=== PATIENT | male | born 1960 | race Caucasian/White ===

== ENCOUNTER 2017-04-24 18:01 | Emergency (ER) | payer MEDICARE ==
[~2017-04-24] VITALS: Ht 160 cm; Wt 65.8 kg
[~2017-04-24 18:01] MED LIST: CLARITIN10 MG PO; COMBIVENT1 ARO IH; KEFLEX500 MG PO; MEDROL DOSEPAK4 MG PO; NKHM; PREDNICOT20 MG PO; TRAMADOL HCL50 MG PO; TRIMOX500 MG PO; ZITHROMAX Z PA250 MG PO
[2017-04-24 18:40] LABS: BASO # 0.1 10*3/uL (0.0-0.1); BASO % 0.9 % (0.0-1.0); EOS # 0.5 10*3/uL (0.0-0.4); EOS % 8.3 % (1.0-4.0); HEMATOCRIT 39.5 % (42.0-52.0); HEMOGLOBIN 13.1 g/dl (14.0-18.0); LYMPH # 2.6 10*3/uL (1.3-4.4); LYMPH % 40.5 % (27.0-41.0); MEAN CELL VOLUME 91.4 fl (80.0-94.0); MEAN CORPUSCULAR HGB 30.3 pg (27.0-31.0); MEAN CORPUSCULAR HGB CONC 33.2 g/dl (33.0-37.0); MEAN PLATELET VOLUME 9.5 fl (9.6-12.3); MONO # 0.4 10*3/uL (0.1-1.0); MONO % 6.8 % (3.0-9.0); NEUT # 2.8 10*3/uL (2.3-7.9); NEUT % 43.5 % (47.0-73.0); PLATELET COUNT AUTOMATED 283 10*3/uL (130-400); RED BLOOD COUNT 4.32 10*6/uL (4.50-5.90); RED CELL DISTRI WIDTH 13.4 % (0-14.5); WHITE BLOOD COUNT 6.5 10*3/uL (4.8-10.8)
[2017-04-24 18:55] LABS: ALBUMIN 3.5 gm/dl (3.1-4.5); ALKALINE PHOSPHATASE 72 U/L (45-117); BUN 14 mg/dl (7-24); CHLORIDE 106 mmol/L (98-107); CREATININE 0.83 mg/dL (0.70-1.30); POTASSIUM 3.9 mmol/L (3.5-5.1); SGOT/AST 14 IU/L (3-35); SGPT/ALT 17 U/L (12-78); SODIUM 141 mmol/L (136-145); TOTAL PROTEIN 6.5 gm/dL (6.4-8.2)
[2017-04-24] MEDS ORDERED: NORCO 5-325 TA1 EACH PO (20:44)
[2017-04-24] MEDS ORDERED: CEPHALEXIN500 M1 PO (20:44)
[2017-04-24] MEDS ORDERED: SEPTDS PO (20:44)
== END 2017-04-24 20:49 | disposition home or self-care (01) ==
LOC: ED 18:01
PROVIDERS: Physician Assistant
DX: L02.31 Cutaneous abscess of buttock (principal); F17.200 Nicotine dependence, unspecified, uncomplicated

== ENCOUNTER → 2018-04-16 | Outpatient (CLI) | payer MEDICARE ==
[~2018-04-16] MED LIST changes: +ANUSOL-HC25 MG R; +CEPHALEXIN500 M1 PO; +COLACE100 MG PO; +NORCO 5-325 TA1 EACH PO; +SEPTDS PO
[2018-04-16 08:53] LABS: BASO # 0.1 10*3/uL (0.0-0.1); BASO % 0.8 % (0.0-1.0); EOS # 0.8 10*3/uL (0.0-0.4); EOS % 9.5 % (1.0-4.0); HEMATOCRIT 45.6 % (42.0-52.0); LYMPH # 2.2 10*3/uL (1.3-4.4); LYMPH % 27.3 % (27.0-41.0); MEAN CELL VOLUME 91.4 fl (80.0-94.0); MEAN CORPUSCULAR HGB 30.1 pg (27.0-31.0); MEAN CORPUSCULAR HGB CONC 32.9 g/dl (33.0-37.0); MEAN PLATELET VOLUME 9.5 fl (9.6-12.3); MONO # 0.5 10*3/uL (0.1-1.0); MONO % 5.8 % (3.0-9.0); NEUT # 4.5 10*3/uL (2.3-7.9); NEUT % 56.3 % (47.0-73.0); PLATELET COUNT AUTOMATED 246 10*3/uL (130-400); RED BLOOD COUNT 4.99 10*6/uL (4.50-5.90); RED CELL DISTRI WIDTH 13.2 % (0-14.5); WHITE BLOOD COUNT 7.9 10*3/uL (4.8-10.8)
[2018-04-16 09:07] LABS: ALBUMIN 3.5 gm/dl (3.1-4.5); ALKALINE PHOSPHATASE 74 U/L (45-117); BUN 15 mg/dl (7-24); CHLORIDE 108 mmol/L (98-107); CREATININE 0.87 mg/dL (0.70-1.30); POTASSIUM 3.8 mmol/L (3.5-5.1); SGOT/AST 14 IU/L (3-35); SGPT/ALT 17 U/L (12-78); SODIUM 141 mmol/L (136-145); TOTAL PROTEIN 6.6 gm/dL (6.4-8.2)
== END | disposition home or self-care (01) ==
LOC: LAB 08:14
PROVIDERS: Urology
DX: D40.0 Neoplasm of uncertain behavior of prostate (principal); I10 Essential (primary) hypertension

== ENCOUNTER → 2018-05-23 | Day surgery (SDC) | payer MEDICARE ==
--- NOTE | ~2018-05-23 | PROC NOTE ---
[place], [place] PROCEDURE NOTE NAME: SANTY VAZQUEZ [facility] #: [id number] UNIT #: [id number] ROOM: DOCTOR: EMANUEL HENRY,DOMITILA BIRTHDATE: [birth year] DOS: PROCEDURE: Colonoscopy. INDICATIONS: Hematochezia. An informed consent was obtained from the patient after the indication of procedure, the alternatives and potential complications were explained to him. PROCEDURE MEDICATION: Sedation was administered by Anesthesiology Department. SCOPE USED: Olympus pediatric colonoscope variable stiffness GIF-180. DEPTH OF INSERTION: To the cecum, which was identified by the usual landmarks, the appendiceal orifice, the ileocecal valve and triangular fold, in addition to transillumination in the right lower quadrant. FINDINGS: After adequate sedation, the patient was placed in left lateral decubitus position. Rectal examination showed normal sphincter tone and no external hemorrhoids. The scope was introduced into the rectum, then advanced to the cecum with some difficulty due to looping in the left colon and fixed sigmoid loops. The prep was suboptimal. The visualized mucosa appeared normal with no evidence of polyps, diverticular ulcerations. Retroflexed views in the rectum showed grade 2 internal hemorrhoids. The scope was then withdrawn after the rectum was decompressed. The patient tolerated the procedure well. IMPRESSION: 1. Suboptimal prep. 2. Internal hemorrhoids. 3. Normal colon mucosa, otherwise no polyps seen. PLAN: A repeat screening colonoscopy advised in 5 years. The patient was instructed to follow a high-fiber diet and use fiber supplements daily. Office followup will be scheduled p.r.n. DOMITILA CASTELLANOS MD CM:PROCNOTE:PROCEDURE NOTE [id number] KJ CASTELLANOS MD
[2018-05-23 07:20] VITALS: BP 107/63
[2018-05-23 08:30] VITALS: BP 100/63
[2018-05-23 08:45] VITALS: BP 105/68
[2018-05-23 09:00] VITALS: BP 109/72
== END | disposition home or self-care (01) ==
LOC: CANPRESDC → SDC 04-21 08:45
DX: K64.8 Other hemorrhoids (principal); Z87.442 Personal history of urinary calculi; Z98.890 Other specified postprocedural states

== ENCOUNTER 2019-12-30 17:28 | Emergency (ER) | payer OTHER ==
[2019-12-30] MEDS ORDERED: PROVENTIL HFA6.7 GM INH (20:36)
== END 2019-12-30 20:37 | disposition home or self-care (01) ==
LOC: ED 17:28
DX: R05 Cough (principal); J02.9 Acute pharyngitis, unspecified; Z20.828 Contact with and (suspected) exposure to other viral communicable diseases

== ENCOUNTER → 2020-06-28 | Outpatient (CLI) | payer OTHER ==
[~2020-06-28] MED LIST changes: +PROVENTIL HFA6.7 GM INH
[2020-06-28 10:08] LABS: BASO % 0.6 % (0.0-1.0); EOS # 0.3 10*3/uL (0.0-0.4); EOS % 6.9 % (1.0-4.0); HEMATOCRIT 45.9 % (42.0-52.0); LYMPH % 40.2 % (27.0-41.0); MEAN CELL VOLUME 90.4 fl (80.0-94.0); MEAN CORPUSCULAR HGB 29.3 pg (27.0-31.0); MEAN CORPUSCULAR HGB CONC 32.5 g/dl (33.0-37.0); MEAN PLATELET VOLUME 9.4 fl (9.6-12.3); MONO # 0.3 10*3/uL (0.1-1.0); MONO % 6.3 % (3.0-9.0); NEUT # 2.2 10*3/uL (2.3-7.9); NEUT % 45.8 % (47.0-73.0); PLATELET COUNT AUTOMATED 248 10*3/uL (130-400); RED BLOOD COUNT 5.08 10*6/uL (4.50-5.90); RED CELL DISTRI WIDTH 13.4 % (0-14.5); WHITE BLOOD COUNT 4.9 10*3/uL (4.8-10.8)
[2020-06-28 10:41] LABS: ALBUMIN 3.7 gm/dl (3.1-4.5); BUN 10 mg/dl (7-24); CHLORIDE 111 mmol/L (98-107); CHOLESTEROL 176 mg/dL (<200); POTASSIUM 4.1 mmol/L (3.5-5.1); SGOT/AST 9 IU/L (3-35); SGPT/ALT 15 U/L (12-78); SODIUM 142 mmol/L (136-145); TOTAL PROTEIN 6.6 gm/dL (6.4-8.2); TRIGLYCERIDES 94 mg/dl (<150); VLDL CHOLESTEROL 19 mg/dL (6-40)
[2020-06-28 10:47] LABS: ALKALINE PHOSPHATASE 91 U/L (45-117); FREE T4 1.04 ng/dl (0.76-1.46); HDL CHOLESTEROL 54 mg/dl (40-60); LDL CHOLESTEROL 103 mg/dL (9-159)
[2020-06-28 11:00] LABS: VITAMIN D, 25-HYDROXY 9.6 ng/mL (30-100)
== END | disposition home or self-care (01) ==
LOC: LAB 09:00
PROVIDERS: ATTEND Internal Medicine
DX: M51.37 Other intervertebral disc degeneration, lumbosacral region (principal); M51.36 Other intervertebral disc degeneration, lumbar region; M17.12 Unilateral primary osteoarthritis, left knee; M25.762 Osteophyte, left knee; M43.06 Spondylolysis, lumbar region; M25.78 Osteophyte, vertebrae; M25.862 Other specified joint disorders, left knee; R06.02 Shortness of breath; G95.89 Other specified diseases of spinal cord; I70.0 Atherosclerosis of aorta; I10 Essential (primary) hypertension; E55.9 Vitamin D deficiency, unspecified; Z00.00 Encounter for general adult medical examination without abnormal findings; Z13.1 Encounter for screening for diabetes mellitus; Z13.21 Encounter for screening for nutritional disorder; Z13.220 Encounter for screening for lipoid disorders

== ENCOUNTER 2021-07-10 14:25 | Emergency (ER) | payer MEDICARE, OTHER ==
[~2021-07-10] VITALS: Wt 56.7 kg
[2021-07-10] MEDS ORDERED: AMOXICILLIN500 M2 PO (14:48)
[2021-07-10] MEDS ORDERED: CETIRIZINE10 MG PO (14:48)
[2021-07-10] MEDS ORDERED: FLONASE ALLERG9.9 ML NAS (14:48)
== END 2021-07-10 15:02 | disposition home or self-care (01) ==
LOC: ED 14:25
DX: J32.9 Chronic sinusitis, unspecified (principal)

== ENCOUNTER 2022-04-21 17:34 | Emergency (ER) | payer OTHER ==
[~2022-04-21 17:34] MED LIST changes: +AMOXICILLIN500 M2 PO; +CETIRIZINE10 MG PO; +FLONASE ALLERG9.9 ML NAS
[2022-04-21 19:04] LABS: BASO % 0.4 % (0.0-1.0); EOS # 0.4 10*3/uL (0.0-0.4); EOS % 6.5 % (1.0-4.0); HEMATOCRIT 44.1 % (42.0-52.0); LYMPH # 2.1 10*3/uL (1.3-4.4); LYMPH % 37.8 % (27.0-41.0); MEAN CELL VOLUME 90.2 fl (80.0-94.0); MEAN CORPUSCULAR HGB 30.1 pg (27.0-31.0); MEAN CORPUSCULAR HGB CONC 33.3 g/dl (33.0-37.0); MEAN PLATELET VOLUME 9.7 fl (9.6-12.3); MONO # 0.4 10*3/uL (0.1-1.0); MONO % 6.6 % (3.0-9.0); NEUT # 2.6 10*3/uL (2.3-7.9); NEUT % 48.7 % (47.0-73.0); PLATELET COUNT AUTOMATED 206 10*3/uL (130-400); RED BLOOD COUNT 4.89 10*6/uL (4.50-5.90); RED CELL DISTRI WIDTH 12.8 % (0-14.5); WHITE BLOOD COUNT 5.4 10*3/uL (4.8-10.8)
[2022-04-21 19:29] LABS: ALKALINE PHOSPHATASE 76 U/L (46-116); BUN 8 mg/dl (9-23); CHLORIDE 104 mmol/L (98-107); LIPASE 25 U/L (12-53); POTASSIUM 3.9 mmol/L (3.4-5.1); SGPT/ALT 8 U/L (10-49); TOTAL PROTEIN 6.4 gm/dL (6.0-8.0)
[2022-04-21 21:33] LABS: BILIRUBIN Negative (Negative); BLOOD Negative (Negative); CLARITY Clear (Clear); COLOR Yellow (Yellow); GLUCOSE Negative (Negative); KETONE 1+ (Negative); LEUKO ESTERASE Negative (Negative); NITRITE Negative (Negative); PH 6.5 (4.5-8.0); SPECIFIC GRAVITY >= 1.030 (1.001-1.030)
[2022-04-21 21:48] LABS: HYALINE CAST 0-2; MUCOUS 1+; WBC 0-2 wbc/hpf (0-5)
[2022-04-21 21:50] LABS: EPITHELIAL CELLS 0-2
== END 2022-04-21 21:52 | disposition home or self-care (01) ==
LOC: ED 17:34
PROVIDERS: Physician Assistant
DX: S23.3XXA Sprain of ligaments of thoracic spine, initial encounter (principal); Z98.890 Other specified postprocedural states; Z87.891 Personal history of nicotine dependence; X50.1XXA Overexertion from prolonged static or awkward postures, initial encounter; Y93.89 Activity, other specified; Y92.89 Other specified places as the place of occurrence of the external cause; Y99.8 Other external cause status

== ENCOUNTER 2022-12-07 09:57 | Emergency (ER) | payer OTHER ==
[~2022-12-07] VITALS: Wt 54.4 kg
[2022-12-07 10:26] LABS: BASO % 0.4 % (0.0-1.0); EOS # 0.1 10*3/uL (0.0-0.4); EOS % 0.9 % (1.0-4.0); HEMATOCRIT 43.8 % (42.0-52.0); LYMPH # 1.7 10*3/uL (1.3-4.4); LYMPH % 22.4 % (27.0-41.0); MEAN CELL VOLUME 92.2 fl (80.0-94.0); MEAN CORPUSCULAR HGB 30.7 pg (27.0-31.0); MEAN CORPUSCULAR HGB CONC 33.3 g/dl (33.0-37.0); MEAN PLATELET VOLUME 9.5 fl (9.6-12.3); MONO # 0.4 10*3/uL (0.1-1.0); MONO % 5.7 % (3.0-9.0); NEUT # 5.5 10*3/uL (2.3-7.9); NEUT % 70.5 % (47.0-73.0); PLATELET COUNT AUTOMATED 265 10*3/uL (130-400); RED BLOOD COUNT 4.75 10*6/uL (4.50-5.90); RED CELL DISTRI WIDTH 13.6 % (0-14.5); WHITE BLOOD COUNT 7.8 10*3/uL (4.8-10.8)
[2022-12-07 10:49] LABS: ALKALINE PHOSPHATASE 84 U/L (46-116); BUN 10 mg/dl (9-23); CHLORIDE 111 mmol/L (98-107); POTASSIUM 3.5 mmol/L (3.4-5.1); SGPT/ALT 16 U/L (10-49); TOTAL PROTEIN 6.1 gm/dL (6.0-8.0)
[2022-12-07] MEDS ORDERED: CIPRO500 MG PO (11:12)
[2022-12-07] MEDS ORDERED: ANTI-DIARRHEAL2 MG PO (11:12)
[2022-12-07] MEDS ORDERED: NICORETTE2 MG PO (11:12)
== END 2022-12-07 11:18 | disposition home or self-care (01) ==
LOC: ED 09:57
PROVIDERS: Emergency Medicine
DX: R19.7 Diarrhea, unspecified (principal); R68.83 Chills (without fever); Z98.890 Other specified postprocedural states; F17.200 Nicotine dependence, unspecified, uncomplicated

== ENCOUNTER 2023-03-13 11:54 | Emergency (ER) | payer OTHER ==
[~2023-03-13] VITALS: Ht 162.5 cm; Wt 55.8 kg
[~2023-03-13 11:54] MED LIST changes: +ANTI-DIARRHEAL2 MG PO; +CIPRO500 MG PO; +NICORETTE2 MG PO
[2023-03-13] MEDS ORDERED: TYLENOL325 M2 PO (12:29)
== END 2023-03-13 18:22 | disposition home or self-care (01) ==
LOC: ED 11:54
DX: U07.1 COVID-19 (principal); R51.9 Headache, unspecified; Z98.890 Other specified postprocedural states

== ENCOUNTER 2024-12-03 09:09 | Emergency (ER) | payer OTHER ==
[~2024-12-03] VITALS: Ht 162.5 cm; Wt 60.8 kg
[~2024-12-03 09:09] MED LIST changes: +TYLENOL325 M2 PO
[2024-12-03] MEDS ORDERED: Acetaminophen/Oxycodone 5 MG/325 MG TABLET PO ONE (09:25)
[2024-12-03] MEDS ORDERED: CYCLOBENZAPRINE10 MG PO (09:51)
[2024-12-03] MEDS ORDERED: MELOXICAM15 MG PO (09:51)
== END 2024-12-03 09:57 | disposition home or self-care (01) ==
LOC: ED 09:09
DX: M54.50 Low back pain, unspecified (principal); I10 Essential (primary) hypertension; E78.5 Hyperlipidemia, unspecified; Z79.899 Other long term (current) drug therapy; Z98.890 Other specified postprocedural states